=== PATIENT | female | born 1985 | race Caucasian/White ===

== ENCOUNTER 2022-12-15 08:26 | Day surgery (SDC) | payer BC, OTHER ==
[~2022-12-15 08:26] MED LIST: Albuterol 0.083% 2.5 MG/3 ML Neb Soln NEB PRN; Dexmedetomidine 200 MCG/2 ML SDV ONE; HYDROmorphone 1 MG/ML Syringe IVPUSH PRN; Metoclopramide 10 MG/2 ML SDV IVPUSH PRN; Morphine 2 MG/ML SYRINGE IVPUSH PRN; Naloxone 0.4 MG/ML SDV IVPUSH PRN; Ondansetron 4 MG/2 ML SDV IVPUSH PRN; Scopolamine 1.5 MG Transdermal Patch TOP ONE; Water For Injection, Sterile 20 ML ONE; droPERidol 5 MG/2 ML SDV IVPUSH PRN; fentaNYL 100 MCG/2 ML SDV ONE; fentaNYL 50 MCG/ML SDV IVPUSH PRN; propofoL 50 ML ONE
[2022-12-15] MEDS ORDERED: Lidocaine 1% with EPINEPHrine 1:100,000 50 ML MDV ONE (08:37)
[2022-12-15] MEDS ORDERED: Famotidine 20 MG/2 ML SDV ONE (09:04)
[2022-12-15] MEDS ORDERED: Magnesium Sulfate (4.06 MEQ/ML) 5 GM/10 ML SDV ONE (09:25)
[2022-12-15] MEDS ORDERED: Ketorolac 30 MG/ML SDV ONE (09:27)
[2022-12-15] MEDS ORDERED: Ondansetron 4 MG/2 ML SDV ONE (09:27)
[2022-12-15] MEDS ORDERED: Dexamethasone 4 MG/ML 5 ML MDV ONE (09:27)
[2022-12-15] MEDS ORDERED: Propofol 200 MG/20 ML SDV ONE (09:39)
[2022-12-15] MEDS ORDERED: Lactated Ringers 1,000 ML IV SCH (10:00)
[2022-12-15 10:57] VITALS: BP 93/52; PULSE 73
== END 2022-12-15 12:15 | disposition home or self-care (01) ==
LOC: MW.SDS 08:26
PROVIDERS: ATTEND Obstetrics & Gynecology
DX: N84.1 Polyp of cervix uteri (principal); N84.0 Polyp of corpus uteri; F41.9 Anxiety disorder, unspecified; Z79.899 Other long term (current) drug therapy; Z91.048 Other nonmedicinal substance allergy status
CPT/HCPCS: 58301; 58563; 81025; A9270; C1729; J0131; J1100; J1885; J2405; J2704; J3010; J3475; J3490; J7120

== ENCOUNTER 2023-07-04 01:10 | Emergency (ER) | payer BC, OTHER ==
[2023-07-04] MEDS: Sodium Chloride 0.9% 1,000 ML IV ONE (01:38)
[2023-07-04] MEDS: Ketorolac 30 MG/ML SDV IVPUSH ONE (01:38)
[2023-07-04] MEDS: Ondansetron 4 MG/2 ML SDV IVPUSH ONE (01:38)
[2023-07-04] MEDS: Dexamethasone 4 MG/ML SDV IVPUSH ONE (01:38)
[2023-07-04] MEDS: Racepinephrine 2.25% 0.5 ML Neb Soln NEB ONE (01:39)
[2023-07-04] MEDS: Sodium Chloride 0.9% 2.5 ML Syringe FLUSH PRN (01:39)
[2023-07-04] MEDS: Sodium Chloride 0.9% Inhalation Soln 3 ML Neb INH PRN (01:39)
[2023-07-04] MEDS: Sodium Chloride 0.9% 10 ML Syringe FLUSH PRN (01:39)
[2023-07-04 01:51] LABS: BASOPHILS ABSOLUTE AUTO 0.04 K/uL (0.00-0.20); BASOPHILS PERCENT AUTO 0.4 % (0.0-1.0); EOSINOPHILS ABSOLUTE AUTO 0.17 K/uL (0.00-0.45); EOSINOPHILS PERCENT AUTO 1.9 % (0.0-6.0); HEMOGLOBIN 12.8 g/dL (12.0-16.0); IMMATURE GRAN ABSOLUTE AUTO 0.02 K/uL (0.00-0.05); IMMATURE GRAN PERCENT AUTO 0.2 % (0.0-0.4); LYMPHOCYTES ABSOLUTE AUTO 2.03 K/uL (1.00-4.80); LYMPHOCYTES PERCENT AUTO 22.2 % (24.0-44.0); MEAN CORPUSCULAR HEMOGLOBIN 28.4 pg (28.0-32.0); MEAN CORPUSCULAR HGB CONC 32.8 g/dL (32.0-36.0); MEAN CORPUSCULAR VOLUME 86.5 fL (83.0-99.0); MEAN PLATELET VOLUME 9.8 fL (9.4-12.3); MONOCYTES ABSOLUTE AUTO 0.56 K/uL (0.00-0.80); MONOCYTES PERCENT AUTO 6.1 % (0.0-8.0); NEUTROPHILS ABSOLUTE AUTO 6.34 K/uL (1.80-7.70); NEUTROPHILS PERCENT AUTO 69.2 % (41.0-71.0); PLATELET COUNT,PLT 196 K/uL (150-400); RED BLOOD CELL COUNT 4.51 M/uL (4.10-5.30); WHITE BLOOD CELL COUNT,WBC 9.16 K/uL (3.9-11.3)
[2023-07-04 02:19] LABS: ALBUMIN 3.7 g/dL (3.4-5.0); BILIRUBIN TOTAL 0.5 mg/dL (0.2-1.0); CALCIUM 8.9 mg/dL (8.5-10.1); CARBON DIOXIDE,CO2 28.7 mmol/L (21.0-32.0); CREATININE 0.8 mg/dL (0.6-1.0); EST CRCL DRUG DOSING (CG) 101.08 mL/min; POTASSIUM,K 3.6 mmol/L (3.5-5.1); PROTEIN TOTAL,TP 7.5 g/dL (6.4-8.2)
[2023-07-04] MEDS: Clindamycin Phosphate in D5W 300 MG in Premix Bag 1 BAG IV ONE (02:24)
[2023-07-04] MEDS: cefTRIAXone 1 GM in Sodium Chloride 0.9% 50 ML IV ONE (03:13)
[2023-07-04 03:16] VITALS: BP 111/74; PULSE 83
== END 2023-07-04 04:00 | disposition other institution (70) ==
LOC: MW.ED 01:10
DX: J36 Peritonsillar abscess (principal); Z91.048 Other nonmedicinal substance allergy status; Z81.1 Family history of alcohol abuse and dependence; Z88.1 Allergy status to other antibiotic agents; Z79.899 Other long term (current) drug therapy
CPT/HCPCS: 36415; 80053; 85025; 86308; 96365; 96367; 96375; 99284; J0696; J0736; J1100; J1885; J2405; J3490; J7030